=== PATIENT | female | born 1940 | race Caucasian/White ===

== ENCOUNTER 2023-06-30 06:34 | Day surgery (SDC) | payer MEDICARE, OTHER ==
[2023-06-30 07:51] VITALS: BP 134/67; TEMP 98.2
[2023-06-30 08:12] LABS: Anion Gap 11 mmol/L (10-20); BUN (Urea Nitrogen) 13 mg/dL (9.8-20.1); Calc. Creatinine Clearance 73 mL/min (70-130); Carbon Dioxide 24 mmol/L (23-31); Chloride 108 mmol/L (98-107); Estimated GFR 84; Glucose 103 mg/dL (83-110); Potassium 3.8 mmol/L (3.5-5.1); Sodium 139 mmol/L (136-145)
== END 2023-06-30 09:35 | disposition home or self-care (01) ==
LOC: CSHSDC 06:34
PROVIDERS: ATTEND Specialist
PROC: 5A2204Z Restoration of Cardiac Rhythm, Single (ICD-10-PCS; principal; 2023-06-30)
DX: I48.19 Other persistent atrial fibrillation (principal); I25.10 Atherosclerotic heart disease of native coronary artery without angina pectoris; E78.5 Hyperlipidemia, unspecified; I10 Essential (primary) hypertension; I34.0 Nonrheumatic mitral (valve) insufficiency; I27.20 Pulmonary hypertension, unspecified; H26.9 Unspecified cataract; F41.9 Anxiety disorder, unspecified; F32.A Depression, unspecified; Z95.5 Presence of coronary angioplasty implant and graft; Z79.01 Long term (current) use of anticoagulants; Z87.891 Personal history of nicotine dependence; Z88.4 Allergy status to anesthetic agent; Z79.899 Other long term (current) drug therapy; Z79.02 Long term (current) use of antithrombotics/antiplatelets
CPT/HCPCS: 80048; 93005; 93010

== ENCOUNTER 2023-10-16 11:24 | Inpatient (IN) | payer MEDICARE, OTHER ==
[2023-10-16] MEDS ORDERED: Furosemide 40 MG (4 mL) VIAL ONE (12:18)
[2023-10-16 12:36] LABS: #Basophils 0.05 10x3/uL (0.0-0.2); #Eosinphils 0.16 10x3/uL (0.0-0.5); #Neutrophils 4.89 10x3/uL (1.5-8.4); %Basophils 0.8 % (0.0-2.0); %Eosinophils 2.6 % (0.0-6.0); %Lymphocytes 11.4 % (18.0-47.0); %Monocytes 6.4 % (0.0-10.0); %Neutrophils 78.5 % (40.0-75.0); Hematocrit 35.6 % (34.9-44.5); Hemoglobin 11.9 g/dL (12.0-15.5); Mean Corpuscular HGB CONC 33.4 g/dL (32.0-36.0); Mean Corpuscular Hemoglobin 31.2 pg (27.0-33.0); Mean Corpuscular Volume 93.2 fL (81.6-98.3); Mean Platelet Volume 11.9 fL (7.4-10.4); Platelet Count 170 10x3/uL (150-450); RBC Distribution Width 14.2 % (11.5-14.5); Red Blood Cell (RBC) Count 3.82 10x6/uL (3.90-5.03); White Blood Cell (WBC) Count 6.2 10x3/uL (3.5-10.5)
[2023-10-16 12:45] LABS: ALT (SGPT) 7 U/L (8-55); AST (SGOT) 11 U/L (5-34); Albumin 3.4 g/dL (3.4-4.8); Alkaline Phosphatase 116 U/L (40-110); Anion Gap 14 mmol/L (10-20); BUN (Urea Nitrogen) 8 mg/dL (9.8-20.1); Bilirubin, Total 0.9 mg/dL (0.2-1.2); Calc. Creatinine Clearance 0 mL/min (70-130); Carbon Dioxide 23 mmol/L (23-31); Chloride 108 mmol/L (98-107); Estimated GFR 86; Globulin 2.3 g/dL (2.4-3.5); Glucose 99 mg/dL (83-110); Protein, Total 5.7 g/dL (5.8-8.1); Sodium 141 mmol/L (136-145)
[2023-10-16 12:49] LABS: Troponin I 0.027 ng/mL (< 0.028)
[2023-10-16 14:42] LABS: Magnesium 1.9 mg/dL (1.6-2.6)
[2023-10-16] MEDS ORDERED: Magnesium 2 GM/50 ML(in water) 2 GM in Premix 1 BAG IVPB SCH (15:15)
[2023-10-16 15:39] VITALS: BMI 26.8
[2023-10-16] MEDS ORDERED: Nitroglycerin 0.4 MG TAB (25 Tab Bottle) SL PRN (16:05)
[2023-10-16] MEDS ORDERED: Calcium Carbonate 500 MG ChewTAB PO PRN (16:12)
[2023-10-16] MEDS ORDERED: Ondansetron ODT 4 MG TAB PO PRN (16:12)
[2023-10-16] MEDS ORDERED: Acetaminophen 325 MG TAB PO PRN (16:21)
[2023-10-16 17:03] LABS: Troponin I 0.026 ng/mL (< 0.028)
[2023-10-16] MEDS: Potassium Chloride 20 MEQ TAB PO SCH (17:58)
[2023-10-16] MEDS ORDERED: Acetaminophen 325 MG TAB PO SCH (18:00)
[2023-10-16] MEDS: Apixaban 5 MG TAB PO SCH (20:36)
[2023-10-16] MEDS: Fluticasone Propionate Nasal Spray 16 gm Bottle NASAL SCH (20:36)
[2023-10-16] MEDS: Dronedarone HCl 400 MG TAB PO SCH (20:36)
[2023-10-16] MEDS: Atorvastatin Calcium 10 MG TAB PO SCH (20:36)
[2023-10-16] MEDS ORDERED: Famotidine 20 MG TAB PO SCH (21:00)
[2023-10-16] MEDS ORDERED: [UNRECOGNIZED DRUG - REMARK] PO SCH (21:00)
[2023-10-16] MEDS: Melatonin 3 MG TAB PO PRN (22:33)
[2023-10-17] MEDS: Furosemide 40 MG (4 mL) VIAL SLOW IVP SCH (05:07)
[2023-10-17 05:38] LABS: #Basophils 0.06 10x3/uL (0.0-0.2); #Eosinphils 0.23 10x3/uL (0.0-0.5); #Monocytes 0.52 10x3/uL (0.0-1.1); #Neutrophils 3.56 10x3/uL (1.5-8.4); %Basophils 1.1 % (0.0-2.0); %Eosinophils 4.2 % (0.0-6.0); %Lymphocytes 19.3 % (18.0-47.0); %Monocytes 9.6 % (0.0-10.0); %Neutrophils 65.6 % (40.0-75.0); Hematocrit 32.5 % (34.9-44.5); Hemoglobin 10.7 g/dL (12.0-15.5); Mean Corpuscular HGB CONC 32.9 g/dL (32.0-36.0); Mean Corpuscular Hemoglobin 30.7 pg (27.0-33.0); Mean Corpuscular Volume 93.1 fL (81.6-98.3); Mean Platelet Volume 11.5 fL (7.4-10.4); Platelet Count 157 10x3/uL (150-450); RBC Distribution Width 14.1 % (11.5-14.5); Red Blood Cell (RBC) Count 3.49 10x6/uL (3.90-5.03); White Blood Cell (WBC) Count 5.4 10x3/uL (3.5-10.5)
[2023-10-17 05:52] LABS: Anion Gap 11 mmol/L (10-20); BUN (Urea Nitrogen) 7 mg/dL (9.8-20.1); Calc. Creatinine Clearance 77 mL/min (70-130); Calcium 8.8 mg/dL (7.8-10.44); Carbon Dioxide 28 mmol/L (23-31); Chloride 106 mmol/L (98-107); Estimated GFR 87; Glucose 83 mg/dL (83-110); Magnesium 1.8 mg/dL (1.6-2.6); Potassium 3.2 mmol/L (3.5-5.1); Sodium 142 mmol/L (136-145)
[2023-10-17] MEDS: Pantoprazole DR 40 MG TAB PO SCH (08:43)
[2023-10-17] MEDS: Escitalopram Oxalate 10 mg Tablet PO SCH (08:43)
[2023-10-17] MEDS: Potassium Chloride 20 MEQ TAB PO SCH (08:44)
[2023-10-17] MEDS: Magnesium 2 GM/50 ML(in water) 2 GM in Premix 1 BAG IVPB SCH ×2 (08:44→10:39)
[2023-10-17] MEDS: Empagliflozin 10 MG TAB PO SCH (10:39)
[2023-10-17] MEDS: Sacubitril 24MG/Valsartan 26 MG TAB PO SCH ×2 (10:39→20:29)
[2023-10-17] MEDS: Furosemide 20 MG (2 mL) VIAL SLOW IVP SCH (14:20)
[2023-10-17 16:20] LABS: Potassium 3.8 mmol/L (3.5-5.1)
[2023-10-17] MEDS: Carvedilol 3.125 MG TAB PO SCH (17:41)
[2023-10-17] MEDS: Enoxaparin 80 MG (0.8 mL) SYRINGE SC SCH (20:28)
[2023-10-18 03:58] LABS: #Basophils 0.05 10x3/uL (0.0-0.2); #Eosinphils 0.45 10x3/uL (0.0-0.5); #Monocytes 0.64 10x3/uL (0.0-1.1); #Neutrophils 3.71 10x3/uL (1.5-8.4); %Basophils 0.8 % (0.0-2.0); %Lymphocytes 24.7 % (18.0-47.0); %Monocytes 9.9 % (0.0-10.0); %Neutrophils 57.4 % (40.0-75.0); Hematocrit 35.9 % (34.9-44.5); Hemoglobin 12.1 g/dL (12.0-15.5); Mean Corpuscular HGB CONC 33.7 g/dL (32.0-36.0); Mean Corpuscular Hemoglobin 31.3 pg (27.0-33.0); Platelet Count 183 10x3/uL (150-450); RBC Distribution Width 14.1 % (11.5-14.5); Red Blood Cell (RBC) Count 3.86 10x6/uL (3.90-5.03); White Blood Cell (WBC) Count 6.5 10x3/uL (3.5-10.5)
[2023-10-18 04:11] LABS: ALT (SGPT) Less than 7 U/L (8-55); AST (SGOT) 8 U/L (5-34); Albumin 2.9 g/dL (3.4-4.8); Alkaline Phosphatase 96 U/L (40-110); Anion Gap 11 mmol/L (10-20); BUN (Urea Nitrogen) 12 mg/dL (9.8-20.1); Bilirubin, Total 0.8 mg/dL (0.2-1.2); Calc. Creatinine Clearance 65 mL/min (70-130); Calcium 8.8 mg/dL (7.8-10.44); Carbon Dioxide 27 mmol/L (23-31); Chloride 105 mmol/L (98-107); Estimated GFR 76; Globulin 2.2 g/dL (2.4-3.5); Glucose 93 mg/dL (83-110); Magnesium 2.4 mg/dL (1.6-2.6); Potassium 3.7 mmol/L (3.5-5.1); Protein, Total 5.1 g/dL (5.8-8.1); Sodium 139 mmol/L (136-145)
[2023-10-18] MEDS: Empagliflozin 10 MG TAB PO SCH (08:28)
[2023-10-19 04:25] LABS: #Basophils 0.06 10x3/uL (0.0-0.2); #Monocytes 0.64 10x3/uL (0.0-1.1); #Neutrophils 4.03 10x3/uL (1.5-8.4); %Basophils 0.9 % (0.0-2.0); %Eosinophils 10.5 % (0.0-6.0); %Lymphocytes 18.5 % (18.0-47.0); %Monocytes 9.6 % (0.0-10.0); %Neutrophils 60.2 % (40.0-75.0); Hemoglobin 12.1 g/dL (12.0-15.5); Mean Corpuscular HGB CONC 33.6 g/dL (32.0-36.0); Mean Corpuscular Hemoglobin 31.3 pg (27.0-33.0); Mean Platelet Volume 11.7 fL (7.4-10.4); Platelet Count 169 10x3/uL (150-450); RBC Distribution Width 14.2 % (11.5-14.5); Red Blood Cell (RBC) Count 3.87 10x6/uL (3.90-5.03); White Blood Cell (WBC) Count 6.7 10x3/uL (3.5-10.5)
[2023-10-19 04:35] LABS: Anion Gap 12 mmol/L (10-20); BUN (Urea Nitrogen) 15 mg/dL (9.8-20.1); Calc. Creatinine Clearance 57 mL/min (70-130); Carbon Dioxide 25 mmol/L (23-31); Chloride 107 mmol/L (98-107); Estimated GFR 68; Glucose 99 mg/dL (83-110); Potassium 3.9 mmol/L (3.5-5.1); Sodium 140 mmol/L (136-145)
[2023-10-19] MEDS ORDERED: Lidocaine 1% PF 5 ML VIAL ONE (10:51)
[2023-10-19] MEDS ORDERED: Sodium Bicarbonate 2.5 MEQ/5 ML SDV ONE (10:51)
[2023-10-19] MEDS: Acetaminophen 325 MG TAB PO SCH (15:20)
[2023-10-19] MEDS: Lidocaine 4% Patch TD SCH (15:22)
[2023-10-19] MEDS: Transdermal Patch Removal TOP SCH (22:09)
[2023-10-20 04:23] LABS: Anion Gap 14 mmol/L (10-20); BUN (Urea Nitrogen) 22 mg/dL (9.8-20.1); Calc. Creatinine Clearance 44 mL/min (70-130); Calcium 8.9 mg/dL (7.8-10.44); Carbon Dioxide 21 mmol/L (23-31); Chloride 109 mmol/L (98-107); Estimated GFR 51; Glucose 100 mg/dL (83-110); Magnesium 2.2 mg/dL (1.6-2.6); Potassium 4.1 mmol/L (3.5-5.1); Sodium 140 mmol/L (136-145)
[2023-10-20 04:24] LABS: #Basophils 0.05 10x3/uL (0.0-0.2); #Monocytes 0.67 10x3/uL (0.0-1.1); #Neutrophils 3.77 10x3/uL (1.5-8.4); %Basophils 0.8 % (0.0-2.0); %Eosinophils 10.8 % (0.0-6.0); %Lymphocytes 19.5 % (18.0-47.0); %Monocytes 10.4 % (0.0-10.0); %Neutrophils 58.2 % (40.0-75.0); Hematocrit 34.7 % (34.9-44.5); Hemoglobin 11.6 g/dL (12.0-15.5); Mean Corpuscular HGB CONC 33.4 g/dL (32.0-36.0); Mean Corpuscular Hemoglobin 31.3 pg (27.0-33.0); Mean Corpuscular Volume 93.5 fL (81.6-98.3); Mean Platelet Volume 11.3 fL (7.4-10.4); Platelet Count 153 10x3/uL (150-450); RBC Distribution Width 14.3 % (11.5-14.5); Red Blood Cell (RBC) Count 3.71 10x6/uL (3.90-5.03); White Blood Cell (WBC) Count 6.5 10x3/uL (3.5-10.5)
[2023-10-20] MEDS ORDERED: Lidocaine 1% PF 5 ML VIAL ONE (07:16)
[2023-10-20] MEDS ORDERED: Sodium Bicarbonate 2.5 MEQ/5 ML SDV ONE (07:16)
[2023-10-20 10:54] LABS: BF Color Yellow; Body Fluid Source Thoracentesis Fluid; Clarity Hazy (Clear); Tube # EDTA
[2023-10-20 13:44] LABS: Pleural Fluid, Amylase Less than 30 U/L (Not Available); Pleural Fluid, Glucose 95 mg/dL; Pleural Fluid, LDH 126 U/L (Not Available); Pleural Fluid, Protein 2.3 g/dL
[2023-10-20 16:07] LABS: Fluid, pH - Pleural Fld Greater than 7.500 (7.60 - 7.66)
[2023-10-20] MEDS: Apixaban 5 MG TAB PO SCH (20:51)
[2023-10-20] MEDS: Loperamide HCl 2 MG CAP PO PRN (23:02)
[2023-10-21 12:15] VITALS: BP 87/47; TEMP 98.1
== END 2023-10-21 15:55 | disposition home or self-care (01) | DRG 291 ==
LOC: CSHERS 11:24 → CSHTELE 13:47
PROVIDERS: ADMIT Internal Medicine; ATTEND Hospitalist
DX: I11.0 Hypertensive heart disease with heart failure (principal); I50.43 Acute on chronic combined systolic (congestive) and diastolic (congestive) heart failure; J96.01 Acute respiratory failure with hypoxia; I25.10 Atherosclerotic heart disease of native coronary artery without angina pectoris; E78.00 Pure hypercholesterolemia, unspecified; I48.0 Paroxysmal atrial fibrillation; E83.42 Hypomagnesemia; E78.5 Hyperlipidemia, unspecified; K21.9 Gastro-esophageal reflux disease without esophagitis; F41.9 Anxiety disorder, unspecified; E87.6 Hypokalemia; Z90.89 Acquired absence of other organs; Z88.8 Allergy status to other drugs, medicaments and biological substances; Z98.890 Other specified postprocedural states; Z87.891 Personal history of nicotine dependence; Z79.899 Other long term (current) drug therapy
CPT/HCPCS: 32555; 36415; 71045; 71046; 80048; 80053; 82150; 82945; 83615; 83735; 83880; 83986; 84157; 84484; 85025; 87070; 87102; 87205; 87206; 88112; 88305; 88341; 88342; 89051; 93005; 93306; 94760; 94762; 96374; J1650; J1940; J3475